=== PATIENT | female | born 1975 | race African-American/Black ===

== ENCOUNTER 2016-10-17 20:23 | Emergency (ER) | payer OTHER ==
[~2016-10-17] VITALS: Ht 172.7 cm; Wt 119.3 kg
--- NOTE | ~2016-10-17 | EKG ---
[place] [address] [facility] [place] [address] ELECTROCARDIOGRAM REPORT Name: CASSIESALVADOR L [facility] #: [facility] [id number] Admission: 10/17/16 Attend Phys: Discharge: 10/17/16 Date of : 73 Report #: [id number] THIS REPORT FOR: //name// 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
[~2016-10-17 20:23] MED LIST: ADULT WAL-100 MG/5 M; ADVAIR 250-501 EACH; BENADRYL25 MG PO; CLARITIN10 MG PO; FLEXERIL PO; IBUPROFEN 600600 M1 PO; KEFLEX500 MG PO; LORTABELXR PO; PROAIR HFA8.5 GM; VENTOLIN17 GM; ZPAK PO
[2016-10-17] MEDS ORDERED: ZYRTEC10 M5 PO (20:54)
[2016-10-17 21:58] LABS: URINE BILIRUBIN NEGATIVE (Negative); URINE BLOOD NEGATIVE (Negative); URINE COLOR YELLOW; URINE GLUCOSE-RANDOM* NEGATIVE (Negative); URINE KETONES NEGATIVE (Negative); URINE NITRITE NEGATIVE (Negative); URINE PROTEIN (DIPSTICK) NEGATIVE (Negative); URINE SPECIFIC GRAVITY 1.025 (1.003-1.035); URINE UROBILINOGEN 0.2 E.U./dl (0.2-1.0)
[2016-10-17 22:29] LABS: ABSOLUTE NEUTROPHILS 4.1 thou/uL (1.4-8.2); BASOPHILS 0.7 % (0.0-2.0); EOSINOPHILS 2.1 % (0.0-3.0); HEMATOCRIT 37.2 % (37.0-47.0); MCH 26.3 pg (26.0-34.0); MCHC 32.1 g/dL (28.0-37.0); MCV 81.8 fL (80.0-100.0); MONOCYTES 9.5 % (1.0-8.0); PLATELET COUNT 246 thou/uL (150-400); POLYS 54.7 % (36.0-66.0); RBC 4.55 mil/uL (4.20-5.00); RDW 15.4 % (10.5-14.5); WBC 7.4 thou/uL (4.0-11.0)
[2016-10-17 22:32] LABS: MANUAL DIFF NO
[2016-10-17 22:37] LABS: CALCIUM 9.1 mg/dL (8.5-10.1); POTASSIUM 4.7 mmol/L (3.5-5.1)
[2016-10-17 22:42] LABS: ALBUMIN 3.5 g/dL (3.4-5.0); TOTAL BILIRUBIN 0.4 mg/dL (<0.1-1.0); TOTAL PROTEIN 7.6 g/dL (6.4-8.2)
[2016-10-17] MEDS ORDERED: IBUPROFEN 600600 M1 PO (22:53)
[2016-10-17 23:25] VITALS: BP 110/45
== END 2016-10-17 23:27 | disposition home or self-care (01) ==
LOC: ER 20:23
PROVIDERS: Nurse Practitioner Family
DX: T75.4XXA Electrocution, initial encounter (principal); J45.909 Unspecified asthma, uncomplicated; F10.99 Alcohol use, unspecified with unspecified alcohol-induced disorder; Z88.2 Allergy status to sulfonamides; Z88.1 Allergy status to other antibiotic agents; W86.0XXA Exposure to domestic wiring and appliances, initial encounter; Y93.89 Activity, other specified; Y92.89 Other specified places as the place of occurrence of the external cause; Y99.8 Other external cause status